=== PATIENT | female | born 1955 | race Caucasian/White ===

== ENCOUNTER 2018-06-10 16:53 | Emergency (ER) | payer OTHER ==
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
[2018-06-10 19:02] VITALS: BP 124/59
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
== END 2018-06-10 19:00 | disposition home or self-care (01) ==
LOC: ED 16:53
DX: Z04.1 Encounter for examination and observation following transport accident (principal); S20.212A Contusion of left front wall of thorax, initial encounter; S70.11XA Contusion of right thigh, initial encounter; V48.5XXA Car driver injured in noncollision transport accident in traffic accident, initial encounter; Y93.89 Activity, other specified; Y92.410 Unspecified street and highway as the place of occurrence of the external cause
CPT/HCPCS: 70450; 72125; 72131; 73552; 99283; 99285